=== PATIENT | male | born 1975 ===

== ENCOUNTER → 2017-08-19 | Outpatient (CLI) | payer MEDICARE | LOC: WOUNDCARE 12:43 | PROVIDERS: ATTEND Nurse Practitioner | DX: L97.212 Non-pressure chronic ulcer of right calf with fat layer exposed (principal); L97.522 Non-pressure chronic ulcer of other part of left foot with fat layer exposed; I87.331 Chronic venous hypertension (idiopathic) with ulcer and inflammation of right lower extremity | CPT/HCPCS: 11042; 11045; 87070; 87075; 87077; 87101; 87186; 87205 ==